=== PATIENT | male | born 1940 ===

== ENCOUNTER 2024-06-18 11:38 | Outpatient (AMB) | payer MEDICARE, SELFPAY ==
--- NOTE | 2024-06-18 11:47 | A.OFFVIS_ITS ---
Vital Signs 06/18/24 11:48 Height 5 ft 6 in Weight 173 lb BMI 27.9 BP 182/84 H Blood Pressure Location Lt brachial Position Sitting Pulse 100 Pulse Source Pulse Oximeter Pulse Oximetry (%) 95 Oxygen Delivery Method Room Air Intake Visit Reasons: Chronic pain Glass Block Installer Required: No Allergies naproxen Adverse Reaction (Intermediate, Verified 06/18/24 11:49) Gastrointestinal Upset Medication List - Last Reconciled 06/18/24 by Susan Shelton, FAMILY SPECIALIST acetaminophen-codeine 300-30 mg 1 tab PO Q6H PRN fenofibrate mg PO DAILY glipizide 10 mg PO BID oxycodone mg PO TID sertraline 50 mg PO DAILY simvastatin 20 mg PO DAILY trazodone 50 - 150 mg PO BEDTIME PRN HPI Comments Details: Umair is very pleasant 83 years old gentleman who presents in my office with complains on lower back pain with minimal radiation into the left buttock. His problem started 15 years ago and the reason is unknown to him. He has a history of laminectomy performed by Dr. Delcid in the past. He does not know the level of the surgery but it is lower lumbar spine. He reports that he can not sleep normally because of his pain can not do activities of daily living, he can take care of himself but he can not function normally. He is retired individual. Cold weather aggravates his pain and motions aggravate his pain and heat applications and oral medications including opioids alleviate his pain. He needs walker for ambulation. In terms of tissue damage he describes his pain as stabbing, lancinating, sharp, lacerating, hot burning, searing, dull, hurting, heavy, tiring, exhausting, spreading, piercing. He was under care of multiple providers from [facility]. He received multiple images at [facility]. Those are not available for me today. He received multiple physical therapy sessions with [facility] in [place] and he reports minimal help from physical therapy for short period of time. In the past he received massage therapy also from [facility] however those were years ago and gave him even less help from than physical therapy. He received multiple injections from [facility] in [place], he reports that those injections did not help him. He is currently taking oxycodone 10 mg and Tylenol No. 3 for his pain as needed. His past medical history significant for hypertension fatigue diabetes arthritis dizziness and fainting. His past surgical history significant for appendectomy and laminotomy/laminectomy. He stopped smoking cigarettes long time ago he drinks decaf coffee, he denies recreational drugs. Review of Systems Const All systems reviewed & are unremarkable except as noted in HPI and below ENT Reports Normal hearing present Neuro Reports Normal hearing present, Denies Abnormal speech present, Denies confusion and Denies Sensory deficit (Neuro) Psych Denies confusion Physical Exam Vital Signs: Last Vital Signs Pulse 100 06/18/24 11:48 BP 182/84 H 06/18/24 11:48 Pulse Ox 95 06/18/24 11:48 Oxygen Delivery Method Room Air 06/18/24 11:48 BMI result Body Mass Index 27.9 Const General: no acute distress; No confusion Orientation/consciousness: patient oriented x3 and No confusion Eyes General: appearance normal, both eyes and all related structures Pupils: Equal, round and reactive pupils present EOM: EOMs intact bilaterally Neck Neck: Yes full ROM Chest Chest palpation & inspection: normal inspection of the chest Resp Effort & Inspection: normal respiratory effort, able to speak in complete sentences, normal respiratory pattern, no audible wheezes and no cough Cardio Jugular venous distension: no JVD GI Inspection: Yes normal to inspection Back/Spine/Pelvis Other: SLR is negative bilaterally. Tenderness on palpation in projection of the left sacroiliac joint. Tenderness on palpation in projection of the sacral bone. David test is positive on the left. Pelvic compression test is positive on the left. Pelvic distraction test is negative however thigh thrust test is positive on the left. Patient is able to stand on bilateral tiptoes but have difficulty standing on bilateral heels. There is a small paraspinal incision in the projection of approximately L5 vertebra no more than 3 cm long most likely incision from laminotomy versus laminectomy. Unlikely hardware. Neuro General: patient oriented x3, gait normal and No confusion Cranial nerves: Yes CN's II-XII intact bilaterally, Yes Equal, round and reactive pupils present, Yes Normal hearing present and Yes Ability to bilaterally elevate shoulders present Speech: No Abnormal speech present Gait exam (Neuro): Normal gait present Motor exam (neuro): 5/5 motor strength present throughout Sensory Exam: No Sensory deficit (Neuro) Extrem General: No pedal edema Psych Speech and movement: Normal speech and movement present Affect: normal affect Attitude: cooperative Thought process: Normal thought process present Thought content: Normal thought content present Insight: Good insight present (Psych) Judgement: Good judgement present (Psych) Assessment & Plan Assessment & Plan (1) Sacroiliitis: Code(s): M46.1 - Sacroiliitis, not elsewhere classified Category: Medical (2) Sacroiliac joint dysfunction of left side: Code(s): M53.3 - Sacrococcygeal disorders, not elsewhere classified Category: Medical (3) Postlaminectomy syndrome: Code(s): M96.1 - Postlaminectomy syndrome, not elsewhere classified Category: Medical (4) Chronic pain syndrome: Code(s): G89.4 - Chronic pain syndrome Category: Medical Plan On physical exam today patient exhibits signs of sacroiliitis and left sacroiliac joint dysfunction. I offered him to do left sacroiliac diagnostic injection however patient adamantly refused, he stated that he tried all this injection including sacroiliac joint injections in the past and it did not help his pain. I offered also him neuromodulation to treat his postlaminectomy syndrome. I gave him brochures about spinal cord stimulator Nevro and pain pump [employer]. I also gave him brochure about [facility] evaluation. At the beginning of the June patient is living [place] and goes for [place] to visit his daughter. I suggested that he would use that time to make an appointment with [facility] to go for psychological evaluation to prepare himself for neuromodulation if he decides to go for it. He will schedule appointment on August 14 with me. He also gave us permission to obtain nature of the procedures he received from his most recent provider [facility] in [facility], however unfortunately he forgot to sign the medical release information note. Jose go we will try to obtain this information from those providers. Patient Instructions: I here by testify that I spent 50 minutes in conversation with this patient as well as with his as well as planning his care and organizing this note. Coding Level of Care Code New Pt Level 4 (77340) Diagnoses Sacroiliitis M46.1 Sacroiliac joint dysfunction of left side M53.3 Postlaminectomy syndrome M96.1 Chronic pain syndrome G89.4
[2024-06-18 11:48] VITALS: BP 182/84; PULSE 100; O2SAT 95; BMI 27.9
--- OUTSIDE RECORDS SUMMARY | 2024-06-18 13:24 | XMS_ITS | Clinical Summary ---
Author Organization [facility] [address] [place] [address] [address] [place], [place] Phone Care Team Providers Care Glass Lined Tank Repairer Name Role Phone Kevin Magallon Primary Care Provider [phone] Social History Tobacco Use Types Packs/Day Years Used Date Smoking Tobacco: Never Assessed Sex and Gender Information Value Date Recorded Sex Assigned at Not on file Gender Identity Not on file Sexual Orientation Not on file Plan of Treatment Upcoming Encounters Date Type Department Care Team (Late st Contact Info) Description 06/24/2024 3:00 PM EST Consult Endocrinology - [place] [address], [place] [phone] Marta Cervantes PA [address] [place], [place] Health Maintenance Due Date Last Done Comments DTaP,Tdap,and Td Vaccines (1 - Tdap) 1959 Zoster Vaccines (1 of 2) 1988 Pneumococcal Vaccine: 65+ Ye ars (1 of 1 - PCV) 09/27/2003 RSV Immunization Patients 60 + Years Old (1 - 1-dose 75+ series) 2013 COVID-19 Vaccine (2023-2 5 season) 2024 Influenza Vaccine (#1) 2024 Cholesterol Screening (Lipid Panel) 06/09/2024 Depression Screening 06/09/2024 Falls Risk Assessment 06/09/2024 Medicare Annual Wellness Visit 06/09/2024 Social Influencers of Health Screening 06/09/2024 HIB Vaccines Aged Out No longer eligi ble based on patient's age to complete this topic HPV Vaccines Aged Out No longer eligi ble based on patient's age to complete this topic Hepatitis A Vaccines Aged Out No long er eligible based on patient's age to complete this topic Hepatitis B Vaccines Aged Out No long er eligible based on patient's age to complete this topic IPV Vaccines Aged Out No longer eligi ble based on patient's age to complete this topic MMR Vaccines Aged Out No longer eligi ble based on patient's age to complete this topic Meningococcal ACWY Vaccine Aged Out N o longer eligible based on patient's age to complete this topic RSV Immunization Patients Un tomy 20 months Aged Out No longer eligible b ased on patient's age to complete this topic Varicella Vaccines Aged Out No longer eligible based on patient's age to complete this topic Care Teams Glass Lined Tank Repairer Relationship Specialty Start Date End Date Kevin Magallon PA [address] [place] [phone] PCP - General Physician Award Clerk 06/09/24
== END 2024-06-18 12:23 | disposition home or self-care (01) ==
PROVIDERS: PCP Internal Medicine; Referring Provider Physician Assistant Medical; Visit Provider Anesthesiology
DX: M46.1 Sacroiliitis, not elsewhere classified (principal); M53.3 Sacrococcygeal disorders, not elsewhere classified; M96.1 Postlaminectomy syndrome, not elsewhere classified; G89.4 Chronic pain syndrome
CPT/HCPCS: 99204

== ENCOUNTER → 2024-06-18 11:38 | Outpatient (BNVA) | payer MEDICARE, SELFPAY | PROVIDERS: PCP Internal Medicine; Referring Provider Physician Assistant Medical; Visit Provider Anesthesiology | DX: M46.1 Sacroiliitis, not elsewhere classified (principal); M53.3 Sacrococcygeal disorders, not elsewhere classified; M93.1 Kienbock's disease of adults; G89.4 Chronic pain syndrome | CPT/HCPCS: 99202 ==